=== PATIENT | female | born 1990 | race Hispanic/Latino ===

== ENCOUNTER 2019-12-28 20:05 | Emergency (ER) | payer OTHER, SELFPAY ==
[2019-12-28] MEDS ORDERED: NA CHLORIDE 0.9% 1,000 ML ONE (21:04)
[2019-12-28 21:20] LABS: Absolute Lymphocytes (CBC) 5.2 K/uL (0.7-4.9); Hematocrit 41.7 % (36.0-45.0); Lymphocytes % 32.4 % (15.3-44.8); MPV 8.6 fL (7.6-11.3); RBC Red Blood Cell Count 5.16 M/uL (3.86-4.86)
[2019-12-28 21:37] LABS: ALT/SGPT 48 U/L (12-78); AST/SGOT 28 U/L (15-37); Albumin 3.5 g/dL (3.4-5.0); Alkaline Phosphatase 116 U/L (45-117); BUN Blood Urea Nitrogen 10 mg/dL (7-18); Bicarbonate 29 mmol/L (21-32); Bilirubin Direct < 0.1 mg/dL (0-0.2); Bilirubin Total 0.3 mg/dL (0.2-1.0); Glucose Level 105 mg/dL (74-106); Lipase 170 U/L (73-393); Potassium 3.6 mmol/L (3.5-5.1); Protein, Total 7.7 g/dL (6.4-8.2); Sodium Level 141 mmol/L (136-145)
[2019-12-28] MEDS ORDERED: MORPHINE 4 MG/ML SYR ONE (22:23)
[2019-12-28] MEDS ORDERED: ONDANSETRON 4 MG/2 ML VIAL ONE (22:23)
[2019-12-28 23:30] LABS: Urine Blood TRACE (NEG); Urine Glucose NEGATIVE (NEG); Urine Protein 1+ (NEG); Urine Specific Gravity 1.025 (1.005-1.030)
[2019-12-29] MEDS ORDERED: KETOROLAC 30 MG/ML INJ ONE (00:32)
--- NOTE | 2019-12-29 00:45 | EDPHYS ---
Physician Documentation [facility] Name: Reyna Leonardo Age: 29 yrs Sex: Female : 1990 Arrival Date: 12/28/2019 Time: 20:06 Bed 23 Private MD: ED Physician Slim Harris HPI: 12/27 20:42 This 29 yrs old Female presents to ER via Ambulatory with complaints of mh7 Abdominal Pain. 20:42 The patient presents with abdominal pain in the left lower quadrant. Onset: The mh7 symptoms/episode began/occurred 1 week(s) ago. The symptoms radiate to back. Associated signs and symptoms: Pertinent positives: diarrhea, Pertinent negatives: nausea and vomiting, anorexia, blood in stools, chest pain, constipation, dysuria, fever, headache, hematuria, nausea, palpitations, shortness of breath, vaginal discharge, vomiting, vomiting blood. The symptoms are described as achy, crampy, intermittent, waxing/waning. Modifying factors: The symptoms are alleviated by nothing, the symptoms are aggravated by nothing. Severity of pain: At its worst the pain was moderate 5 day(s) ago, in the emergency department the pain has improved moderately. Historical: - Allergies: 20:22 No Known Allergies; ll1 - PMHx: 20:22 Asthma; borderline DM; ll1 - PSHx: 20:22 Kidney stents; ll1 - Immunization history:: Flu vaccine is not up to date. - Social history:: Smoking status: Patient/guardian denies using tobacco, Stopped _ months ago 1 Patient/guardian denies using alcohol, street drugs. ROS: 20:42 Constitutional: Negative for fever, chills, and weight loss, Eyes: Negative for injury, mh7 pain, redness, and discharge, ENT: Negative for injury, pain, and discharge, Neck: Negative for injury, pain, and swelling, Cardiovascular: Negative for chest pain, palpitations, and edema, Respiratory: Negative for shortness of breath, cough, wheezing, and pleuritic chest pain, : Negative for injury, bleeding, discharge, and swelling, MS/Extremity: Negative for injury and deformity, Skin: Negative for injury, rash, and discoloration, Neuro: Negative for headache, weakness, numbness, tingling, and seizure, Psych: Negative for depression, anxiety, suicide ideation, homicidal ideation, and hallucinations, Allergy/Immunology: Negative for hives, rash, and allergies, Endocrine: Negative for neck swelling, polydipsia, polyuria, polyphagia, and marked weight changes, Hematologic/Lymphatic: Negative for swollen nodes, abnormal bleeding, and unusual bruising. Exam: 20:42 Constitutional: This is a well developed, well nourished patient who is awake, alert, mh7 and in no acute distress. Head/Face: Normocephalic, atraumatic. Neck: Trachea midline, no thyromegaly or masses palpated, and no cervical lymphadenopathy. Supple, full range of motion without nuchal rigidity, or vertebral point tenderness. No Meningismus. Chest/axilla: Normal chest wall appearance and motion. Nontender with no deformity. No lesions are appreciated. Cardiovascular: Regular rate and rhythm with a normal S1 and S2. No gallops, murmurs, or rubs. Normal PMI, no JVD. No pulse deficits. Respiratory: Lungs have equal breath sounds bilaterally, clear to auscultation and percussion. No rales, rhonchi or wheezes noted. No increased work of breathing, no retractions or nasal flaring. 20:42 Back: No spinal tenderness. No costovertebral tenderness. Full range of motion. Skin: Warm, dry with normal turgor. Normal color with no rashes, no lesions, and no evidence of cellulitis. MS/ Extremity: Pulses equal, no cyanosis. Neurovascular intact. Full, normal range of motion. Neuro: Awake and alert, GCS 15, oriented to person, place, time, and situation. Cranial nerves II-XII grossly intact. Motor strength 5/5 in all extremities. Sensory grossly intact. Cerebellar exam normal. Normal gait. Psych: Awake, alert, with orientation to person, place and time. Behavior, mood, and affect are within normal limits. 20:42 Abdomen/GI: Inspection: abdomen appears normal, Bowel sounds: normal, in all quadrants, Palpation: moderate abdominal tenderness, in the left lower quadrant, Rectal exam: the exam is deferred, because of patient request, Indicators: McBurney's point is not tender, Mckeon's sign is negative, Rovsing's sign is negative, Obturator sign is negative, Psoas sign is negative, Liver: no appreciated palpable abnormalities, Hernia: not appreciated. Vital Signs: 20:19 BP 133 / 96; Pulse 89; Resp 18; Temp 98.3; Pulse Ox 98% ; Pain 6/10; ll1 22:19 BP 138 / 94; Pulse 67; Resp 16; Pulse Ox 96% on R/A; jb4 22:45 BP 112 / 77; Pulse 75; Resp 16; Pulse Ox 97% on R/A; jb4 23:45 BP 137 / 96; Pulse 73; Resp 16; Pulse Ox 98% on R/A; Pain 4/10; jb4 12/28 00:15 BP 125 / 94; Pulse 69; Resp 16; Pulse Ox 98% on R/A; jb4 01:07 Pain 5/10; jb4 MDM: 12/27 20:40 Patient medically screened. [facility] 12/28 00:42 Differential diagnosis: bowel obstruction, diverticulitis, non-specific abd pain, 7 Peptic Ulcer Disease, Pyelonephritis, Ureterolithiasis, urinary tract infection. Data reviewed: vital signs, nurses notes, lab test result(s), CBC, electrolytes, urinalysis, radiologic studies, CT scan. Data interpreted: Pulse oximetry: on room air is 98 %. Interpretation: normal. Counseling: I had a detailed discussion with the patient and/or guardian regarding: the historical points, exam findings, and any diagnostic results supporting the discharge/admit diagnosis, the presence of at least one elevated blood pressure reading (>120/80) during this emergency department visit, lab results, radiology results, the need for outpatient follow up, a urologist, to return to the emergency department if symptoms worsen or persist or if there are any questions or concerns that arise at home. Response to treatment: the patient's symptoms have markedly improved after treatment. 12/27 20:41 Order name: Basic Metabolic Panel; Complete Time: 21:58 [facility] 12/27 20:41 Order name: CBC with Diff; Complete Time: 21:58 [facility] 12/27 20:41 Order name: Hepatic Function; Complete Time: 21:58 [facility] 12/27 20:41 Order name: Lipase; Complete Time: 21:58 [facility] 12/27 21:57 Order name: Urine --Ancillary (enter results); Complete Time: 00:02 tt3 12/27 21:57 Order name: Urine Dipstick--Ancillary (enter results); Complete Time: 00:02 tt3 12/27 20:41 Order name: IV Saline Lock; Complete Time: 21:18 [facility] 12/27 20:41 Order name: Labs collected and sent; Complete Time: 21:18 [facility] 12/27 20:41 Order name: Urine Dipstick-Ancillary (obtain specimen); Complete Time: 22:07 [facility] 12/27 21:59 Order name: CT Abd/Pelvis - IV Contrast Only [facility] 12/27 20:41 Order name: Urine Test (obtain specimen); Complete Time: 22:07 [facility] Administered Medications: 12/27 21:00 Drug: NS 0.9% 1000 ml Route: IV; Rate: 1000 ml; Site: right antecubital; [facility] 22:00 Follow up: Response: No adverse reaction; IV Status: Completed infusion; IV Intake: 4 1000ml 22:22 Drug: Zofran (Ondansetron) 4 mg Route: IVP; Site: right antecubital; [facility] 23:45 Follow up: Response: No adverse reaction [facility] 22:24 Drug: morphine 4 mg {Note: Rass score 0.} Route: IVP; Site: right antecubital; [facility] 23:45 Follow up: Response: No adverse reaction; Pain is decreased; RASS: Alert and Calm (0) [facility] 12/28 00:25 Drug: TORadol 30 mg Route: IVP; Site: right antecubital; [facility] 01:07 Follow up: Pain 5/10 Adult; Response: No adverse reaction; Pain is decreased [facility] Disposition: 12/29/19 00:44 Discharged to Home. Impression: Ureterolithiasis. - Condition is Stable. - Discharge Instructions: Kidney Stones, [id number]. - Prescriptions for Zofran ODT 4 mg Oral tablet,disintegrating - place 1 tablet by TRANSLINGUAL route every 8 hours; 10 tablet. ketorolac 10 mg Oral tablet - take 1 tablet by ORAL route every 8 hours not to exceed 40 mg in 24hrs; 15 tablet. Tylenol- Codeine #3 300-30 mg Oral Tablet - take 2 tablets by ORAL route every 6 hours As needed; 20 tablet. Flomax 0.4 mg Oral Capsule, Sust. Release 24 hr - take 1 capsule by ORAL route once daily 1/2 hour following the same meal each day; 7 capsule. Cipro 500 mg Oral Tablet - take 1 tablet by ORAL route every 12 hours for 7 days; 14 tablet. - Medication Reconciliation Form, Thank You Letter, Antibiotic Education, Prescription Opioid Use form. - Follow up: Private Physician; When: 1 - 2 days; Reason: Worsening of condition, Recheck today's complaints, Re-evaluation by your physician. Follow up: Anjana Munoz MD; When: 1 - 2 days; Reason: Worsening of condition, Recheck today's complaints, Continuance of care. - Problem is an acute exacerbation. - Symptoms have improved. Signatures: Dispatcher [employer] EDMS Ralph Roberson RN RN jb4 Nithin Blanc RN RN ll1 Slim Harris MD MD mh7 Corrections: (The following items were deleted from the chart) 01:08 00:44 12/29/2019 00:44 Discharged to Home. Impression: Ureterolithiasis. Condition is jb4 Stable. Forms are Medication Reconciliation Form, Thank You Letter, Antibiotic Education, Prescription Opioid Use. Follow up: Private Physician; When: 1 - 2 days; Reason: Worsening of condition, Recheck today's complaints, Re-evaluation by your physician. Follow up: Anjana Munoz; When: 1 - 2 days; Reason: Worsening of condition, Recheck today's complaints, Continuance of care. Problem is an acute exacerbation. Symptoms have improved. mh7
--- NOTE | 2019-12-29 00:45 | ER ---
Nurse's Notes [facility] Name: Reyna Leonardo Age: 29 yrs Sex: Female : 1990 Arrival Date: 12/28/2019 Time: 20:06 Bed 23 Private MD: Diagnosis: Ureterolithiasis Presentation: 12/27 20:19 Chief complaint: Patient states: Lower abdominal pain for 1 week. Period is 4 days ll1 late. No N/V. Diarrhea x 5/day since. Chills and body aches. Slight cough. Coronavirus screen: Surgical mask placed on patient. Patient moved to private room, placed in contact and droplet isolation with eye protection until further assessment. Patient reports a cough. Patient denies shortness of breath or difficulty breathing. Patient denies measured and/or subjective temperature greater than 100.4F prior to today's visit. Patient denies travel on a cruise ship or to a country the [facility] currently lists as an affected area. Patient denies contact with known and/or suspected case of COVID-19. Ebola Screen: Patient denies travel to an Ebola-affected area in the 21 days before illness onset. Initial Sepsis Screen: Does the patient meet any 2 criteria? No. Patient's initial sepsis screen is negative. Risk Assessment: Do you want to hurt yourself or someone else? Patient reports no desire to harm self or others. Onset of symptoms was December 21, 2019. 20:19 Method Of Arrival: Ambulatory ll1 20:19 Acuity: KIERA 3 ll1 Historical: - Allergies: 20:22 No Known Allergies; ll1 - PMHx: 20:22 Asthma; borderline DM; ll1 - PSHx: 20:22 Kidney stents; ll1 - Immunization history:: Flu vaccine is not up to date. - Social history:: Smoking status: Patient/guardian denies using tobacco, Stopped _ months ago 1 Patient/guardian denies using alcohol, street drugs. Screenin:50 Abuse screen: Denies threats or abuse. Nutritional screening: No deficits noted. jb4 Tuberculosis screening: No symptoms or risk factors identified. Fall Risk None identified. Assessment: 20:50 General: Appears in no apparent distress. comfortable, Behavior is calm, cooperative, jb4 appropriate for age. Pain: Complains of pain in left lower quadrant Pain radiates to low back area Pain currently is 6 out of 10 on a pain scale. Quality of pain is described as crampy, Pain began 2-3 days ago. Is continuous. Neuro: Level of Consciousness is awake, alert, obeys commands, Oriented to person, place, time, situation. Cardiovascular: Patient's skin is warm and dry. Respiratory: Airway is patent Respiratory effort is even, unlabored, Respiratory pattern is regular, symmetrical. GI: Abdomen is non-distended, obese, Bowel sounds present X 4 quads. Abd is soft and non tender X 4 quads. Reports lower abdominal pain, cramping. : No signs and/or symptoms were reported regarding the genitourinary system. EENT: No signs and/or symptoms were reported regarding the EENT system. Derm: Skin is intact, Skin is pink, warm \T\ dry. Musculoskeletal: Circulation, motion, and sensation intact. Range of motion: intact in all extremities. 22:00 Reassessment: Patient appears in no apparent distress at this time. Patient and/or jb4 family updated on plan of care and expected duration. Pain level reassessed. Patient is alert, oriented x 3, equal unlabored respirations, skin warm/dry/pink. 22:50 Reassessment: Patient appears in no apparent distress at this time. Patient and/or jb4 family updated on plan of care and expected duration. Pain level reassessed. Patient is alert, oriented x 3, equal unlabored respirations, skin warm/dry/pink. Patient states feeling better. 12/28 00:00 Reassessment: Patient appears in no apparent distress at this time. Patient and/or jb4 family updated on plan of care and expected duration. Pain level reassessed. Patient is alert, oriented x 3, equal unlabored respirations, skin warm/dry/pink. Patient states feeling better. 01:06 Reassessment: Patient appears in no apparent distress at this time. Patient and/or jb4 family updated on plan of care and expected duration. Pain level reassessed. Patient is alert, oriented x 3, equal unlabored respirations, skin warm/dry/pink. Pt verbalized understanding of d/c and follow up instructions. Denies questions or concerns. Ambulated out of ED with steady gait. Patient states feeling better. Vital Signs: 12/27 20:19 BP 133 / 96; Pulse 89; Resp 18; Temp 98.3; Pulse Ox 98% ; Pain 6/10; ll1 22:19 BP 138 / 94; Pulse 67; Resp 16; Pulse Ox 96% on R/A; jb4 22:45 BP 112 / 77; Pulse 75; Resp 16; Pulse Ox 97% on R/A; jb4 23:45 BP 137 / 96; Pulse 73; Resp 16; Pulse Ox 98% on R/A; Pain 4/10; jb4 12/28 00:15 BP 125 / 94; Pulse 69; Resp 16; Pulse Ox 98% on R/A; jb4 01:07 Pain 5/10; jb4 ED Course: 12/27 20:06 Patient arrived in ED. cl3 20:22 Triage completed. ll1 20:23 Arm band placed on Patient placed in an exam room, on a stretcher. 1 20:29 Slim Harris MD is Attending Physician. 7 20:40 Ralph Roberson RN is Primary Nurse. jb4 20:50 Patient has correct armband on for positive identification. Bed in low position. Call 4 light in reach. Side rails up X 1. Pulse ox on. NIBP on. 21:00 Initial lab(s) drawn, by oh, sent to lab. Inserted saline lock: 20 gauge in right jb4 antecubital area, using aseptic technique. Blood collected. 23:47 CT Abd/Pelvis - IV Contrast Only In Process Unspecified. EDMS 12/28 00:44 Anjana Munoz MD is Referral Physician. [facility] 01:07 No provider procedures requiring assistance completed. IV discontinued, intact, jb4 bleeding controlled, No redness/swelling at site. Pressure dressing applied. Administered Medications: 12/27 21:00 Drug: NS 0.9% 1000 ml Route: IV; Rate: 1000 ml; Site: right antecubital; jb4 22:00 Follow up: Response: No adverse reaction; IV Status: Completed infusion; IV Intake: jb4 1000ml 22:22 Drug: Zofran (Ondansetron) 4 mg Route: IVP; Site: right antecubital; jb4 23:45 Follow up: Response: No adverse reaction jb4 22:24 Drug: morphine 4 mg {Note: Rass score 0.} Route: IVP; Site: right antecubital; jb4 23:45 Follow up: Response: No adverse reaction; Pain is decreased; RASS: Alert and Calm (0) jb4 12/28 00:25 Drug: TORadol 30 mg Route: IVP; Site: right antecubital; jb4 01:07 Follow up: Pain 5/10 Adult; Response: No adverse reaction; Pain is decreased jb4 Intake: 12/27 22:00 IV: 1000ml; Total: 1000ml. jb4 Outcome: 12/28 00:44 Discharge ordered by MD. gorman 01:07 Discharged to home ambulatory. jb4 01:07 Condition: stable 01:07 Discharge instructions given to patient, Instructed on discharge instructions, follow up and referral plans. medication usage, Demonstrated understanding of instructions, follow-up care, medications, Prescriptions given X 5 01:08 Patient left the ED. jb4 Signatures: Dispatcher [employer] EDRalph Cooper RN RN jb4 Davonte Blanc3 Nithin Blanc RN RN ll1 Slim Harris MD MD mh7
[2019-12-29 01:12] VITALS: TEMP 98.3
[2019-12-29 01:20] VITALS: O2SAT 98
[2019-12-29 01:21] VITALS: BP 125/94
--- NOTE | 2019-12-29 10:44 | RAD REPORT ---
EXAM DESCRIPTION: CT - Abdomen Pelvis W Contrast - 12/29/2019 6:15 am CLINICAL HISTORY: The patient is 29 years old and is Female; ABD PAIN TECHNIQUE: Axial computed tomography images of the abdomen and pelvis with intravenous contrast. S agittal and coronal reformatted images were created and reviewed. This CT exam was performed using one or more of the following dose reduction techniques: automated exposure control, adjustment of t he mA and/or kV according to patient size, and/or use of iterative reconstruction technique. COMPARISON: No relevant prior studies available. FINDINGS: LUNG BASES: Unremarkable. No mass. No consolidation. ABDOMEN: LIVER: The liver is enlarged and mildly fatty. GALLBLADDER AND BILE DUCTS: No calcified stones. No ductal dilation. PANCREAS: No ductal dilation. No mass. SPLEEN: Unremarkable. ADRENALS: Unremarkable. No mass. KIDNEYS AND URETERS: Mild left hydronephrosis and proximal hydroureter is present secondary to a 7 mm proximal left ureteral calculus. Left intrarenal calcification is present. A 2.7 cm right erik al cyst is present. STOMACH AND BOWEL: The stomach is minimally distended. The small bowel is normal in caliber. Sto ol is present throughout colon. There is no mucosal thickening or evidence of bowel obstruction. PELVIS: APPENDIX: The appendix is normal in caliber without surrounding inflammation. BLADDER: Unremarkable. No mass. REPRODUCTIVE: Unremarkable as visualized. ABDOMEN and PELVIS: INTRAPERITONEAL SPACE: Unremarkable. No free air. No significant fluid collection. BONES/JOINTS: No acute fracture. SOFT TISSUES: The soft tissues are normal. VASCULATURE: Unremarkable. No abdominal aortic aneurysm. LYMPH NODES: Unremarkable. No enlarged lymph nodes. IMPRESSION: Mild left hydronephrosis and proximal hydroureter is present secondary to a 7 mm proxima l left ureteral calculus. Electronically signed by: Kaylee Olivo MD 12/28/2019 11:52 PM CDT Due to temporary technical issues with the PACS/Fluency reporting system, reports are being signed by the in house radiologist without review as a courtesy to ensure prompt reporting. The interpreting r adiologist is fully responsible for the content of the report.
== END 2019-12-29 01:08 | disposition home or self-care (01) ==
LOC: ER 20:05
DX: N20.1 Calculus of ureter (principal); R73.03 Prediabetes
CPT/HCPCS: 36415; 74177; 80048; 80076; 81003; 81025; 83690; 85025; 96361; 96374; 96375; 99284; J2405; J7030; Q9967